=== PATIENT | female | born 1995 | race American Indian/Alaskan Native ===

== ENCOUNTER 2019-09-18 14:31 | Inpatient (IN) | payer MEDICAID ==
[2019-09-18] MEDS ORDERED: AMPICILLIN/NS 2 GM/100 ML 2 GM/100 ML BAG IV ONE (16:16)
[2019-09-18] MEDS ORDERED: fentaNYL 100 MCG/2 ML INJ IV PRN (16:47)
[2019-09-18] MEDS ORDERED: NALOXONE 0.4 MG/1 ML INJ IV PRN (16:47)
[2019-09-18] MEDS ORDERED: BUTORPHANOL 2 MG/1 ML INJ IV PRN (16:47)
[2019-09-18] MEDS ORDERED: TERBUTALINE 1 MG/1 ML INJ IVP PRN (16:47)
[2019-09-18] MEDS ORDERED: ePHEDrine SULFATE 50 MG/1 ML INJ IV PRN ×2 (16:47→20:05)
[2019-09-18] MEDS ORDERED: TERBUTALINE 1 MG/1 ML INJ SUB-Q PRN (16:47)
[2019-09-18] MEDS ORDERED: MINERAL OIL 30 ML ORAL LIQD PO PRN (16:47)
[2019-09-18] MEDS ORDERED: ONDANSETRON 4 MG/2 ML INJ IV PRN (16:47)
[2019-09-18] MEDS ORDERED: LACTATED RINGERS 1,000 ML IV SCH (17:00)
[2019-09-18] MEDS ORDERED: OXYTOCIN 20 UNIT/1000ML DRIP 20 UNITS/1,000 ML BAG IV SCH (17:00)
[2019-09-18 17:14] LABS: Hematocrit 30.6 % (30.3-42.9); Hemoglobin 10.3 gm/dl (10.1-14.3); Mean Corpuscular HGB Conc 34 % (30-34); Mean Corpuscular Volume 78 fl (79-97); Platelet Count 280 K/mm3 (140-440); Red Blood Count 3.92 M/mm3 (3.65-5.03)
[2019-09-18] MEDS: LACTATED RINGERS 1,000 ML IV SCH ×2 (17:17→20:31)
[2019-09-18] MEDS ORDERED: OXYTOCIN DRIP 30,000 MILLIUNITS/500 ML BAG IV ONE (17:32)
[2019-09-18 17:36] LABS: Red Cell Distribution Width 23.6 % (13.2-15.2)
[2019-09-18] MEDS ORDERED: LIDOCAINE (2%) 20 MG/1 ML VIAL 20 ML MDV INFILTRATI ONE (18:00)
[2019-09-18] MEDS ORDERED: OXYTOCIN DRIP 30 UNITS/500 ML BAG IV SCH (18:00)
[2019-09-18] MEDS ORDERED: DEXMEDETOMIDINE 200 MCG/2 ML VIAL IV ONE (19:52)
[2019-09-18] MEDS ORDERED: NALOXONE 2 MG/2 ML INJ IV PRN (20:05)
--- NOTE | 2019-09-18 20:25 | Anesthesia Consultation ---
Anesthesia Consult and Med Hx Date of service: 09/18/19 - Airway Anesthetic Teeth Evaluation: Good ROM Head & Neck: Adequate Mental/Hyoid Distance: Adequate Mallampati Class: Class II Intubation Access Assessment: Probably Good - Pulmonary Exam CTA: Yes - Cardiac Exam Cardiac Exam: RRR - Pre-Operative Health Status ASA Pre-Surgery Classification: ASA2 Proposed Anesthetic Plan: Epidural - Pulmonary Hx Asthma: No - Cardiovascular System Hx Hypertension: No - Central Nervous System Hx Seizures: No Hx Psychiatric Problems: No - Endocrine Hx Renal Disease: No Hx Hypothyroidism: No Hx Hyperthyroidism: No - Hematic Hx Anemia: No Hx Sickle Cell Disease: No - Other Systems Hx Alcohol Use: No
[2019-09-18] MEDS ORDERED: AMPICILLIN/NS 1 GM/50 ML 1 GM/50 ML BAG IV SCH (21:00)
[2019-09-18] MEDS ORDERED: fentaNYL-BUPIV 2 MCG/ML-0.125% 200 MCG/100 ML BAG EPIDURAL SCH (21:00)
[2019-09-18] MEDS ORDERED: BUPIVACAINE/PF (0.25%) 2.5 MG/ML 10 ML VIAL INFILTRATI ONE (22:59)
--- NOTE | 2019-09-18 23:56 | History and Physical Report ---
History of Present Illness Date of examination: 09/18/19 Date of admission: 09/18/19 14:32 Chief complaint: contractions History of present illness: Pt is a 24 year old -Spanish female primigravida GENEVIEVE 09/22/19 at 39w3d presents with regular painful contractions and rupture of membranes during her evaluation in triage. She denies vaginal bleeding. She has had care at [facility] since 23 wks complicated by anemia s/p hematology referr al, sickle cell trait, declined genetic testing, and gonorrhea and chlamydia treated with negative test of cure. She is GBS positive. Past History Past Medical History: other (anemia ) Past Surgical History: no surgical history PET HANDLER History: chlamydia (treated with negative test of cure ), gonorrhea (treated with negative test of cure ) Social history: no significant social history - Obstetrical History Expected Date of Delivery: 09/22/19 Actual Gestation: 39 Week(s) 4 Day(s) : 1 Medications and Allergies Allergies Allergy/AdvReac Type Severity Reaction Status Date / Time No Known Allergies Allergy Unverified 09/18/19 16:13 Home Medications Medication Instructions Recorded Confirmed Last Taken Type No Known Home Medications [No 09/18/19 09/18/19 Unknown History Reported Home Medications] Active Meds: Active Medications Butorphanol Tartrate (Stadol) 2 mg IV Q2H PRN PRN Reason: Pain , Severe (7-10) Ephedrine Sulfate (Ephedrine Sulfate) 10 mg IV Q2M PRN PRN Reason: Hypotension Ephedrine Sulfate (Ephedrine Sulfate) 10 mg IV Q2M PRN PRN Reason: Hypotension Fentanyl (Sublimaze) 100 mcg IV Q2H PRN PRN Reason: Labor Pain Last Admin: 09/18/19 18:54 Dose: 100 mcg Documented by: Lactated Ringer's (Lactated Ringers) 1,000 mls @ 125 mls/hr IV DIRECT ROSALINE Last Admin: 09/18/19 20:31 Dose: 125 mls/hr Documented by: Oxytocin/Sodium Chloride (Pitocin/Ns 20 Unit/1000ml Drip) 20 units in 1,000 mls @ 125 mls/hr IV DIRECT ROSALINE Lactated Ringer's (Lactated Ringers) 1,000 mls @ 125 mls/hr IV DIRECT ROSALINE Ampicillin Sodium (Ampicillin/Ns 1 Gm/50 Ml) 1 gm in 50 mls @ 100 mls/hr IV Q4H ROSALINE; Protocol Last Infusion: 09/18/19 20:58 Dose: Infused Documented by: Oxytocin/Sodium Chloride (Pitocin/Ns 30 Unit/500ml) 30 units in 500 mls @ 2 mls/hr IV TITR ROSALINE; Protocol Fentanyl/Bupivacaine/Sodium Chlor (Fentanyl-Bupiv 2 Mcg/Ml-0.125%) 200 mcg in 100 mls @ 12 mls/hr EPIDURAL TITR ROSALINE; Protocol Mineral Oil (Mineral Oil) 30 ml PO QHS PRN PRN Reason: Constipation Naloxone HCl (Naloxone) 0.1 mg IV Q2MIN PRN PRN Reason: Res Rate </= 8 or 02 SAT < 92% Naloxone HCl (Naloxone) 0.2 mg IV Q5M PRN PRN Reason: Respiratory sedation Ondansetron HCl (Zofran) 4 mg IV Q8H PRN PRN Reason: Nausea And Vomiting Terbutaline Sulfate (Brethine) 0.25 mg SUB-Q ONCE PRN PRN Reason: Hyperstimulation/Hypertonicity Terbutaline Sulfate (Brethine) 0.25 mg IVP ONCE PRN PRN Reason: Hyperstimulation/Hypertonicity Review of Systems All systems: negative - Vital Signs Vital signs: Vital Signs Pulse BP 96 H 114/66 09/18/19 14:44 09/18/19 14:44 Temp Pulse Resp BP Pulse Ox 97.8 F 92 H 18 110/62 100 09/18/19 21:30 09/18/19 23:54 09/18/19 21:30 09/18/19 23:54 09/18/19 23:54 - Physical Exam Breasts: Positive: deferred Abdomen: Positive: soft (gravid) Uterus: Positive: enlarged (gravid ) Anus/Rectum: Positive: normal perianal skin Extremities: Positive: normal - Obstetrical FHR: auscultation normal Uterine Contraction Monitor Mode: External Cervical Dilatation: 9 Cervical Effacement Percentage: 100 station: -1 Uterine Contraction Pattern: Regular Uterine Tone Measurement Phase: Resting Uterine Contraction Intensity: Strong/Firm Results Result Diagrams: 09/18/19 16:50 Abnormal lab results 09/18/19 Range/Units 16:50 MCV 78 L (79-97) fl MCH 26 L (28-32) pg RDW 23.6 H (13.2-15.2) % All other labs normal. Assessment and Plan A: IUP at 39w3d Active labor GBS positive P: Admit to labor and delivery Routine intrapartum care GBS prophylaxis
[2019-09-19] MEDS ORDERED: BICITRA ORAL LIQD 30ML PO ONE (00:41)
[2019-09-19] MEDS ORDERED: FAMOTIDINE 20 MG/2 ML INJ IV ONE (00:41)
[2019-09-19] MEDS ORDERED: METOCLOPRAMIDE 10 MG/2 ML INJ IV ONE (00:41)
[2019-09-19] MEDS ORDERED: OXYTOCIN 20 UNIT/1000ML DRIP 20 UNITS/1,000 ML BAG IV SCH ×2 (01:00→04:59)
[2019-09-19] MEDS ORDERED: ceFAZolin/STERILE WATER 2 GM/20 ML SYRINGE IV ONE (01:00)
[2019-09-19] MEDS ORDERED: ceFAZolin/Water 2 GM/20 ML 2 GM/20 ML SYRINGE IV NR (01:00)
[2019-09-19] MEDS ORDERED: LACTATED RINGERS 1,000 ML IV SCH (01:00)
[2019-09-19] MEDS ORDERED: LIDOCAINE MPF (2%) 20 MG/1 ML VIAL 5 ML ONE (01:13)
[2019-09-19] MEDS ORDERED: DEXMEDETOMIDINE 200 MCG/2 ML VIAL IV ONE (01:13)
[2019-09-19] MEDS ORDERED: KETOROLAC 30 MG/1 ML INJ ONE (01:13)
[2019-09-19] MEDS ORDERED: SODIUM BICARB 8.4% 50 MEQ/50 ML VIAL IV ONE (01:13)
[2019-09-19] MEDS ORDERED: OXYTOCIN 10 UNIT/1 ML INJ ONE (01:13)
[2019-09-19] MEDS ORDERED: BUPIVACAINE/PF (0.5%) 5 MG/1 ML 30 ML VIAL INFILTRATI ONE (01:18)
[2019-09-19] MEDS ORDERED: dexAMETHasone 20 MG/5 ML VIAL ONE (01:18)
--- NOTE | 2019-09-19 02:07 | Operative Report ---
Operative Report Operative Report: Date of procedure September 19, 2019 Preoperative diagnosis: 1) IUP at 39w4d 2) Arrest of Dilation Postoperative diagnosis: Same Procedure: Primary low transverse section Surgeon: Meghan Cross M.D. Anesthesia: Regional Findings: 1) Viable male , Apgars 8 and 9, weight 3463g, (7 lb 10.1 oz) in cephalic presentation. Occiput Posterior 2) Normal-appearing uterus ovaries and tubes Estimated blood loss: 600 mL IV fluids: 500 mL Urine output: 50 mL, clear at the end of the procedure Drains: Alexander to gravity Specimens: None Complications: Counts correct x 3 Disposition: Stable to PACU Indication for procedure: Pt is a 24 year old -[place] primigravida at 39w4d who presented with PROM and progressed to 9 cm for over three hours despite adequate contractility. The decision was made to proceed with section. Operation in detail: After the risks, benefits, alternatives and complications were explained to the patient she gave informed consent for the procedure. She was subsequently taken to the operating room where regional anesthesia was noted to be adequate. She was placed in the dorsal supine position with leftward tilt and prepped and draped in a normal sterile fashion. heart tones were noted prior to incision. A timeout was performed. A Pfannenstiel skin incision was made with the knife and carried down to the layer of the fascia with the Bovie. The fascia was incised in the midline and the fascial incision was extended bilaterally with the Bovie. The fascial incision was then stretched. The rectus muscles were then in the midline and partially transected for adequate visualization. The peritoneum was then entered sharpy between two Jazmyn clamps. The peritoneal incision was extended with good visualization of the bladder. The peritoneal incision was then stretched. An Terrell retractor was placed. The bladder blade was then placed. A transverse incision was made in the lower uterine segment with a knife and extended bilaterally with the bandage scissors. head delivered with ease, followed by shoulders and body. bulb suctioned at delivery. Cord clamped and cut. handed to NICU staff in attendance. The placenta was then delivered manually. The uterus was exteriorized and cleared of all clots and debris. The hysterotomy was then reapproximated with 0 Vicryl in a running locked fashion. A second layer of the same suture was used in imbricating fashion. The hysterotomy was inspected and hemostasis was noted. The uterus was returned to the peritoneal cavity and the gutters were irrigated and cleared of all clots and debris. The hysterotomy was again inspected and noted to be hemostatic. Surgicel was placed over the hysterotomy. The Terrell retractor was removed. The peritoneum was reapproximated with 2-0 Vicryl in a running fashion incorporating the rectus muscles. Surgicel was placed over the rectus muscles. The fascia was reapproximated with 0 Vicryl in a running fashion. The subcutaneous tissue was reapproximated with 3-0 Vicryl in a running fashion. The skin was reapproximated with 4-0 Vicryl in a subcuticular fashion. The incision was then covered with steristrips and a pressure dressing. The procedure was then ended. The patient tolerated the procedure well and was taken to the PACU in stable condition. All instrument, lap, and needle counts were correct 3.
--- NOTE | 2019-09-19 02:07 | Procedure Note ---
OB Delivery Note - Delivery Date of Delivery: 09/19/19 Surgeon: ACE CRAWFORD Estimated blood loss: other (600 mL) - Section Preop diagnosis: arrest of dilation Postop diagnosis: same section procedure: section, primary low transverse Disposition: PACU Complications: none Narrative: Please see operative note. - A at 1 minute: 8 at 5 minutes: 9 Infant Gender: Male (3463g (7lb 10.1 oz) @ 128 am)
--- NOTE | 2019-09-19 02:21 | Event Note ---
Date: 09/19/19 On-call MD called back into OR after case secondary to clots expressed after case. 300 mL clots expressed. Fundus firm. Continue pitocin and closely monitor clinical status and bleeding pattern.
--- NOTE | 2019-09-19 03:02 | Post Anesthesia Evaluation ---
- Post Anesthesia Evaluation Patient Participated: Yes Airway Patent: Yes Stable Respiratory Function: Yes Nausea/Vomiting: No Temp > 96.8F: Yes Pain Manageable: Yes Adequeate Hydration: Yes Anesthesia Complications: No Block Receding Appropriately: Yes
[2019-09-19] MEDS ORDERED: NALOXONE 0.4 MG/1 ML INJ IV PRN (04:59)
[2019-09-19] MEDS ORDERED: WITCH HAZEL/ GLYCERIN PAD TP PRN (04:59)
[2019-09-19] MEDS ORDERED: ONDANSETRON 4 MG/2 ML INJ IV PRN (04:59)
[2019-09-19] MEDS ORDERED: D5W/LACTATED RINGERS 1,000 ML IV SCH (04:59)
[2019-09-19] MEDS ORDERED: ACETAMINOPHEN 325 MG TAB PO PRN (04:59)
[2019-09-19] MEDS ORDERED: SIMETHICONE 80 MG CHEW TAB PO PRN (04:59)
[2019-09-19] MEDS ORDERED: LANOLIN/ZINC/DIMETHICONE (LANSINOH) 7 GM TP PRN (04:59)
[2019-09-19] MEDS ORDERED: MORPHINE 2 MG/1 ML INJ IV PRN (04:59)
[2019-09-19] MEDS: KETOROLAC 30 MG/1 ML INJ IV SCH ×2 (09:28→15:40)
[2019-09-19] MEDS: FERROUS SULFATE 325 MG TAB PO SCH (09:30)
[2019-09-19] MEDS: MAGNESIUM HYDROXIDE (MOM) ORAL LIQD UDC PO SCH ×2 (09:30→15:40)
[2019-09-19 16:08] LABS: Hematocrit 26.7 % (30.3-42.9)
[2019-09-19] MEDS: oxyCODONE /ACETAMINOPHEN 5-325MG TAB PO PRN (20:04)
[2019-09-19] MEDS ORDERED: OXYTOCIN DRIP 30 UNITS/500 ML BAG IV SCH ×2 (22:00)
[2019-09-20] MEDS: IBUPROFEN 800 MG TAB PO SCH ×4 (00:46→16:25)
[2019-09-20] MEDS: oxyCODONE /ACETAMINOPHEN 5-325MG TAB PO PRN ×4 (02:01→18:58)
[2019-09-20] MEDS: MAGNESIUM HYDROXIDE (MOM) ORAL LIQD UDC PO SCH ×3 (02:05→12:00)
[2019-09-20] MEDS ORDERED: MEASLES, MUMPS & RUBELLA 12,500 UNIT/0.5 ML VACCINE SUB-Q ONE (06:00)
[2019-09-20] MEDS ORDERED: TETANUS,DIPH,PERTUSS(ACELL) VACCINE 0.5 ML SYRINGE IM ONE (06:00)
--- NOTE | 2019-09-20 08:24 | Progress Note ---
Assessment and Plan - Patient Problems (1) delivery delivered Current Visit: Yes Status: Acute Plan to address problem: patient doing well routine postop care Subjective - Subjective Date of service: 09/20/19 Interval history: Patient doing well. Tolerated regular diet. Ambulating without difficultly Patient reports: appetite normal, voiding normally, pain well controlled [place]: doing well Objective - Vital Signs Latest vital signs: Vital Signs Temp Pulse Resp BP BP Pulse Ox 09/20/19 05:52 20 09/20/19 03:24 20 09/20/19 02:01 18 09/20/19 00:42 98.2 F 88 20 109/59 100 09/19/19 20:04 20 09/19/19 17:12 104 H 99 09/19/19 17:00 18 122/80 09/19/19 08:27 98.3 F 84 16 99/63 100 Intake and Output 09/19/19 09/20/19 09/20/19 22:59 06:59 14:59 Intake Total 240 Output Total 200 Balance -200 240 Intake: Oral 240 Output: Urine 200 Void 200 Other: Total, Intake Amount 240 Total, Output Amount 200 # Voids Void 1 1 - Exam Abdomen: Present: normal appearance Uterus: Present: normal, firm Incision: Present: dressed - Labs Labs: Abnormal lab results 09/19/19 Range/Units 15:56 Hgb 9.0 L (10.1-14.3) gm/dl Hct 26.7 L (30.3-42.9) %
[2019-09-20] MEDS: FERROUS SULFATE 325 MG TAB PO SCH (10:10)
[2019-09-21] MEDS: MAGNESIUM HYDROXIDE (MOM) ORAL LIQD UDC PO SCH ×3 (01:28→18:19)
[2019-09-21] MEDS: IBUPROFEN 800 MG TAB PO SCH ×4 (01:29→23:50)
[2019-09-21] MEDS: oxyCODONE /ACETAMINOPHEN 5-325MG TAB PO PRN ×3 (05:57→20:04)
[2019-09-21] MEDS: FERROUS SULFATE 325 MG TAB PO SCH (10:06)
--- NOTE | 2019-09-21 10:22 | Progress Note ---
Assessment and Plan A: POD# 2 s/p primary section at term, acute on chronic anemia P: Routine postop care. Anticipate discharge tomorrow Subjective - Subjective Date of service: 09/21/19 Principal diagnosis: s/p primary at term Interval history: No overnight events Patient reports: appetite normal, voiding normally, pain well controlled, flatus, bowel movement, ambulating normally [place]: doing well Objective - Vital Signs Latest vital signs: Vital Signs Temp Pulse Resp BP Pulse Ox 09/21/19 08:31 98.1 F 93 H 16 103/65 98 09/21/19 01:08 98.0 F 101 H 18 100/57 96 09/20/19 15:42 97.9 F 88 20 102/74 100 Intake and Output 09/20/19 09/21/19 09/21/19 22:59 06:59 14:59 Intake Total 600 720 Balance 600 720 Intake: Oral 120 720 Intake, Free Water 480 Other: Total, Intake Amount 120 480 # Voids Void 1 1 # Bowel Movements 1 - Exam Breasts: Present: deferred Cardiovascular: Present: Regular rate Lungs: Present: Clear to auscultation Abdomen: Present: soft, normal bowel sounds Uterus: Present: fundal height below umbilicus Extremities: Present: normal Incision: Present: intact
--- NOTE | 2019-09-21 10:23 | Discharge Summary ---
Providers - Providers Date of Admission: 09/18/19 14:32 Date of discharge: 09/22/19 Attending physician: ACE CRAWFORD Primary care physician: ACE CRAWFORD Hospitalization Reason for admission: rupture of membranes Delivery: Procedure: section, primary low transverse Procedure details: Please see operative report Incision: intact Other procedures: none complications: none Discharge diagnosis: IUP at term delivered [place] baby: male Hospital course: The patient was admitted with rupture of membranes and went on to have a primary section which she tolerated well. Her postoperative course was uncomplicated and she met discharge criteria on postoperative day #3. She will follow-up in the office in 2 weeks for an incision check. Condition at discharge: Stable Disposition: - TO HOME OR SELFCARE - Discharge Diagnoses (1) Term of male Status: Acute (2) Acute on chronic anemia Status: Acute (3) delivery delivered Status: Acute Plan - Discharge Medications Prescriptions: Ferrous Sulfate [Feosol 325 MG tab] 325 mg PO BID #60 tablet Ibuprofen [Motrin] 800 mg PO Q8HR PRN #30 tablet PRN Reason: Pain, Moderate (4-6) oxyCODONE /ACETAMINOPHEN [Percocet 5/325] 1 tab PO Q6HR PRN #30 tablet PRN Reason: Pain - Provider Discharge Summary Activity: routine, no sex for 6 weeks, no heavy lifting 4 weeks, no strenuous exercise Diet: routine Instructions: routine Additional instructions: [] Smoking cessation referral if applicable(refer to patient education folder for contact #) [] Refer to [facility] Booklet Call your doctor immediately for: * Fever > 100.5 * Heavy vaginal bleeding ( >1 pad per hour) * Severe persistent headache * Shortness of breath * Reddened, hot, painful area to leg or breast * Drainage or odor from incision. * Keep incision clean and dry at all times and follow doctor's instructions regarding bathing/showering - Follow up plan Follow up: WILFREDO ALBERT CNM [Advanced Practice Nurse] - 10/03/19 (Please call to schedule your incision check. Please schedule your son circumcision before he is 1 month old. If you plan to watch the circumcision please schedule with Dr. Venegas.)
[2019-09-22] MEDS: MAGNESIUM HYDROXIDE (MOM) ORAL LIQD UDC PO SCH (00:48)
[2019-09-22] MEDS: oxyCODONE /ACETAMINOPHEN 5-325MG TAB PO PRN ×2 (01:21→10:20)
[2019-09-22] MEDS: IBUPROFEN 800 MG TAB PO SCH (05:13)
[2019-09-22] MEDS: FERROUS SULFATE 325 MG TAB PO SCH (12:43)
[2019-09-22 17:52] VITALS: BP 106/59
== END 2019-09-22 18:52 | disposition home or self-care (01) | DRG 765 ==
LOC: TRG 14:31 → LD 14:31 → TRG 14:32 → LD 14:32 → OB 09-19 04:02
PROVIDERS: ADMIT Obstetrics & Gynecology; ATTEND Obstetrics & Gynecology
PROC: 10D00Z1 Extraction of Products of Conception, Low, Open Approach (ICD-10-PCS; principal; 2019-09-19)
PROC: 3E0234Z Introduction of Serum, Toxoid and Vaccine into Muscle, Percutaneous Approach (ICD-10-PCS; 2019-09-20)
PROC: 3E0134Z Introduction of Serum, Toxoid and Vaccine into Subcutaneous Tissue, Percutaneous Approach (ICD-10-PCS; 2019-09-20)
DX: O99.02 Anemia complicating childbirth (principal); D62 Acute posthemorrhagic anemia; Z3A.39 39 weeks gestation of pregnancy; Z37.0 Single live birth; Z23 Encounter for immunization; O99.824 Streptococcus B carrier state complicating childbirth; O62.0 Primary inadequate contractions; O64.0XX0 Obstructed labor due to incomplete rotation of fetal head, not applicable or unspecified; O42.02 Full-term premature rupture of membranes, onset of labor within 24 hours of rupture
CPT/HCPCS: 36415; 85014; 85018; 85027; 86850; 86900; 86901; G0378; A6250; J0290; J0690; J1100; J1885; J2590; J3010; J3490; J7120; J7121